=== PATIENT | female | born 1995 | race Caucasian/White ===

== ENCOUNTER 2019-08-31 01:33 | Emergency (ER) | payer OTHER ==
[~2019-08-31] VITALS: Ht 157.5 cm; Wt 145.2 kg
--- NOTE | ~2019-08-31 | EKG ---
[place] [address] ELECTROCARDIOGRAM REPORT Name: KIRAN MONTERROSO Room: [facility]#: [id number] Admission: 08/31/19 Attend Phys: Discharge: 08/31/19 Date of : [birth year] Date of Service: 08/31/19219 Report #: [id number] THIS REPORT FOR: cc: FAM - No family physician/PCP FAM - No family physician/PCP Kevyn Bagley MD ~ THIS REPORT FOR: //name// [facility] ED Test Date: 2019-08-31 Test Time: 02:20:46 Pat Name: KIRAN MONTERROSO Department: Room: Gender: F Pharmacy Clinical Coordinator: : 1995 Requested By: Jazmín Salter Order Number: [id number] Reading MD: Measurements Intervals [place] Rate: 89 P: 56 DE: 114 QRS: 45 QRSD: 85 T: 30 QT: 358 QTc: 436 Interpretive Statements Sinus arrhythmia Borderline short DE interval No previous ECG available for comparison [email or web address] By: 9 0220 Epiphany Epiphany, /EPI
[~2019-08-31 01:33] MED LIST: ACETAMINOPHEN-1 EAC1 PO; AVELOX 400 MG400 M1 PO; CLEOCIN HCL150 MG PO; CLINDAMYCIN HC150 MG PO; DOXYCYCLINE 10100 MG; FLAGYL500 MG; IBUPROFEN 800800 M1 PO; IBUPROFEN 800800 MG PO; LIDOCAINE VISC100 M1 MM; LIDOCAINE VISC100 M1 SWISH&SPIT; NORCO 5-325 TA1 EACH PO; TRAMADOL 50 MG50 MG PO
[2019-08-31 04:11] LABS: URINE BLOOD NEGATIVE (Negative); URINE COLOR YELLOW; URINE GLUCOSE-RANDOM NEGATIVE (Negative); URINE KETONES NEGATIVE (Negative); URINE LEUKOCYTES-REFLEX NEGATIVE (Negative); URINE NITRITE-REFLEX NEGATIVE (Negative); URINE PROTEIN TRACE (Negative); URINE SPECIFIC GRAVITY 1.025 (1.005-1.030); URINE UROBILINOGEN 0.2 E.U./dl (0.2-1.0)
[2019-08-31 04:14] LABS: URINE BILIRUBIN 1+ (Negative); URINE CLARITY CLEAR
[2019-08-31 04:16] LABS: ICTOTEST (BILI CONFIRMATORY) Negative (Negative)
[2019-08-31 04:53] LABS: HEMOGLOBIN 15.2 gm/dL (12.0-15.0); MCH 32.8 pg (26.0-34.0); MCHC 35.3 g/dL (28.0-37.0); MCV 92.8 fL (80.0-100.0); MPV 7.1 fl. (7.2-11.1); RBC 4.63 mil/uL (4.20-5.00); RDW-CV 13.9 % (10.5-14.5); WBC 10.1 thou/uL (4.0-11.0)
[2019-08-31 04:58] LABS: CALCIUM 9.2 mg/dL (8.5-10.1); CREATININE 0.9 mg/dL (0.6-1.3); POTASSIUM 4.1 mmol/L (3.5-5.1)
[2019-08-31 06:32] VITALS: BP 134/80
== END 2019-08-31 06:33 | disposition home or self-care (01) ==
LOC: M.ERS 01:33
PROVIDERS: Personal Emergency Response Attendant
DX: R06.02 Shortness of breath (principal); R42 Dizziness and giddiness; R11.2 Nausea with vomiting, unspecified; J45.909 Unspecified asthma, uncomplicated; F17.210 Nicotine dependence, cigarettes, uncomplicated; Z88.0 Allergy status to penicillin; Z88.1 Allergy status to other antibiotic agents; Z90.49 Acquired absence of other specified parts of digestive tract